=== PATIENT | female | born 1965 | race Caucasian/White ===

== ENCOUNTER → 2020-05-22 | Outpatient (CLI) | payer OTHER | LOC: RAD 10:40 | PROVIDERS: ATTEND Internal Medicine Gastroenterology | DX: K59.09 Other constipation (principal) | CPT/HCPCS: 74018 ==

== ENCOUNTER 2020-05-26 11:48 | Inpatient (IN) | payer OTHER ==
[~2020-05-26] VITALS: Ht 167.6 cm; Wt 54.0 kg
[2020-05-26] MEDS ORDERED: SODIUM CHLORIDE 0.9% 1000ML 1,000 ML IV STA (11:59)
[2020-05-26] MEDS ORDERED: PROMETHAZINE 25MG/ NS 50ML (IV) IV ONE (12:00)
[2020-05-26] MEDS ORDERED: FAMOTIDINE 20 MG/2 ML VIAL IV ONE ×2 (12:00→12:54)
[2020-05-26] MEDS ORDERED: SODIUM CHLORIDE 0.9% 1000ML 1,000 ML IV SCH (12:30)
[2020-05-26] MEDS ORDERED: PROMETHAZINE HCL (IM) 25 MG/ML VIAL IM ONE (12:53)
[2020-05-26] MEDS ORDERED: ONDANSETRON HCL INJ 2MG/ML 2ML 2 MG/ML VIAL IV PRN (14:45)
[2020-05-26] MEDS ORDERED: MORPHINE SULFATE INJ 4 MG/ML INJ 1ML IV PRN (14:45)
[2020-05-26] MEDS ORDERED: DIPHENHYDRAMINE HCL 25 MG CAP PO PRN (14:45)
[2020-05-26] MEDS ORDERED: DIATRIZOATE MEGL/DIATRIZOA SOD 30 ML BTL PO ONE (15:06)
[2020-05-26 15:15] VITALS: BP 149/93
[2020-05-26 15:45] VITALS: BP 149/93
[2020-05-26] MEDS: SODIUM CHLORIDE 0.9% 1000ML 1,000 ML IV SCH (16:00)
[2020-05-26] MEDS: DEXTROSE 5%/LACTATED RINGERS 1,000 ML IV SCH (16:07)
[2020-05-26] MEDS: FAMOTIDINE 20 MG TAB PO SCH (16:30)
[2020-05-26] MEDS ORDERED: BISACODYL 5 MG TAB EC PO ONE ×4 (17:45→19:30)
[2020-05-26 20:21] VITALS: BP 143/95
[2020-05-26] MEDS: AMITRIPTYLINE HCL 25 MG TAB PO SCH (21:00)
[2020-05-26] MEDS ORDERED: ZOLPIDEM TARTRATE 5 MG TAB PO PRN (21:00)
[2020-05-26] MEDS ORDERED: METHYLNALTREXONE BROMIDE 12 MG/0.6 ML VIAL SQ SCH (21:15)
[2020-05-26] MEDS ORDERED: AMITRIPTYLINE100 MG PO (21:32)
[2020-05-26] MEDS ORDERED: VENLAFAXINE HCL75 MG PO (21:34)
[2020-05-26] MEDS ORDERED: MS CONTIN15 MG PO (21:34)
[2020-05-26] MEDS ORDERED: VICODIN HP 10-1 EAC1 PO (21:34)
[2020-05-26 22:36] VITALS: BP 143/95
[2020-05-26 23:56] VITALS: BP 154/93
[2020-05-27] VITALS (7 sets, daily range): BP systolic 107–152; BP diastolic 72–100
[2020-05-27] MEDS: DEXTROSE 5%/LACTATED RINGERS 1,000 ML IV SCH (02:43)
[2020-05-27 06:22] LABS: BASOPHILS # (AUTO) 0.1 (0.0-0.1); BASOPHILS % 0.9 % (0.0-1.0); EOSINOPHILS # (AUTO) 0.3 (0.0-0.4); EOSINOPHILS % 2.6 % (0.0-6.0); HEMATOCRIT 31.4 % (34.2-44.1); HEMOGLOBIN 10.3 g/dL (12.0-16.0); LYMPHOCYTES # (AUTO) 1.8 (1.0-3.2); LYMPHOCYTES % 16.3 % (18.0-39.1); MEAN CORPUSCULAR HEMOGLOBIN 31.9 pg (28-32); MEAN CORPUSCULAR HGB CONC 32.8 g/dL (31-35); MEAN CORPUSCULAR VOLUME 97.2 fL (81-99); MONOCYTES # (AUTO) 0.9 (0.2-0.8); MONOCYTES % 8.2 % (4.4-11.3); NEUTROPHILS # (AUTO) 7.9 (2.1-6.9); NEUTROPHILS % 71.5 % (38.7-80.0); PLATELET COUNT 505 x10e3/uL (140-360); RED BLOOD COUNT 3.23 x10e6/uL (3.6-5.1); RED CELL DISTRIBUTION WIDTH 13.9 % (11.7-14.4)
[2020-05-27 07:11] LABS: THYROID STIMULATING HORMONE 1.846 uIU/mL (0.350-4.940)
[2020-05-27 07:47] LABS: ANION GAP 12.9 mmol/L (8-16); BLOOD UREA NITROGEN 7 mg/dL (7-26); BUN/CREATININE RATIO 9 (6-25); CALCIUM 8.6 mg/dL (8.4-10.2); CARBON DIOXIDE 26 mmol/L (22-29); CHLORIDE 105 mmol/L (98-107); CHOL/HDL RATIO 5.9 (3.0-3.6); CHOLESTEROL 212 MD/DL (0-199); EST GLOMERULAR FILTRATION RATE > 60 ML/MIN (60-); GLUCOSE 97 mg/dL (74-118); HDL CHOLESTEROL 36 MG/DL (40-60); LDL CHOLESTEROL 154 MG/DL (60-130); MAGNESIUM 1.8 MG/DL (1.3-2.1); PHOSPHORUS 3.5 MG/DL (2.3-4.7); SODIUM 141 mmol/L (136-145); TRIGLYCERIDES 111 MG/DL (0-149)
[2020-05-27 07:50] LABS: POTASSIUM 2.9 mmol/L (3.5-5.1)
[2020-05-27] MEDS: FAMOTIDINE 20 MG TAB PO SCH ×2 (08:21→17:29)
[2020-05-27] MEDS: METOCLOPRAMIDE HCL 10 MG/2ML VIAL IV SCH ×3 (08:21→20:14)
[2020-05-27] MEDS ORDERED: POTASSIUM CHLORIDE 10MEQ EA PO ONE ×2 (08:30→17:00)
[2020-05-27] MEDS: SODIUM CHLORIDE 0.9% 1000ML 1,000 ML IV SCH ×4 (08:34→20:07)
[2020-05-27] MEDS: VENLAFAXINE HCL 75 MG TAB PO SCH ×2 (10:55→17:29)
[2020-05-27 12:11] LABS: CLARITY,URINE CLOUDY (CLEAR); COLOR,URINE YELLOW (YELLOW); KETONES,URINE NEGATIVE (NEGATIVE); LEUKOCYTE ESTERASE ,URINE MODERATE (NEGATIVE); NITRITE,URINE NEGATIVE (NEGATIVE); PROTEIN,URINE DIPSTICK TRACE (NEGATIVE); URINE UROBILINOGEN 0.2 mg/dL (0.2 - 1)
[2020-05-27 12:22] LABS: WBC,URINE (MAN) 21-50 /HPF (0-5)
[2020-05-27 12:23] LABS: BACTERIA,URINE MANY /HPF; EPITHELIAL CELLS,URINE FEW /LPF
[2020-05-27] MEDS ORDERED: CEFTRIAXONE SOD 1 GM/50 ML BAG IV SCH (15:45)
[2020-05-27] MEDS ORDERED: CEFTRIAXONE SOD 1 GM in SODIUM CHLORIDE 0.9% 50ML 50 ML IV SCH (16:00)
[2020-05-27] MEDS: ACETAMINOPHEN/CODEINE 300MG - 30MG TAB PO PRN (18:19)
[2020-05-27] MEDS: AMITRIPTYLINE HCL 25 MG TAB PO SCH (20:15)
[2020-05-28 00:30] VITALS: BP 132/88
[2020-05-28] MEDS: ACETAMINOPHEN/CODEINE 300MG - 30MG TAB PO PRN ×2 (03:46→08:18)
[2020-05-28 05:57] VITALS: BP 124/88
[2020-05-28 06:12] LABS: BASOPHILS # (AUTO) 0.1 (0.0-0.1); EOSINOPHILS # (AUTO) 0.4 (0.0-0.4); EOSINOPHILS % 4.8 % (0.0-6.0); HEMATOCRIT 31.2 % (34.2-44.1); HEMOGLOBIN 10.1 g/dL (12.0-16.0); LYMPHOCYTES # (AUTO) 2.3 (1.0-3.2); LYMPHOCYTES % 27.9 % (18.0-39.1); MEAN CORPUSCULAR HEMOGLOBIN 31.4 pg (28-32); MEAN CORPUSCULAR HGB CONC 32.4 g/dL (31-35); MEAN CORPUSCULAR VOLUME 96.9 fL (81-99); MONOCYTES # (AUTO) 0.9 (0.2-0.8); MONOCYTES % 10.9 % (4.4-11.3); NEUTROPHILS # (AUTO) 4.5 (2.1-6.9); NEUTROPHILS % 54.9 % (38.7-80.0); PLATELET COUNT 498 x10e3/uL (140-360); RED BLOOD COUNT 3.22 x10e6/uL (3.6-5.1); RED CELL DISTRIBUTION WIDTH 14.3 % (11.7-14.4)
[2020-05-28 06:36] LABS: BLOOD UREA NITROGEN 6 mg/dL (7-26); BUN/CREATININE RATIO 8 (6-25); CALCIUM 8.6 mg/dL (8.4-10.2); CARBON DIOXIDE 26 mmol/L (22-29); CHLORIDE 108 mmol/L (98-107); CREATININE, SERUM 0.78 mg/dL (0.57-1.11); EST GLOMERULAR FILTRATION RATE > 60 ML/MIN (60-); GLUCOSE 84 mg/dL (74-118); SODIUM 141 mmol/L (136-145)
[2020-05-28 06:58] LABS: FERRITIN 65.49 ng/mL (4.63-204.00)
[2020-05-28] MEDS: SODIUM CHLORIDE 0.9% 1000ML 1,000 ML IV SCH (08:00)
[2020-05-28] MEDS: FAMOTIDINE 20 MG TAB PO SCH (08:11)
[2020-05-28] MEDS: METOCLOPRAMIDE HCL 10 MG/2ML VIAL IV SCH (08:11)
[2020-05-28] MEDS: VENLAFAXINE HCL 75 MG TAB PO SCH (08:11)
[2020-05-28 08:30] VITALS: BP 133/71
[2020-05-28 09:38] VITALS: BP 133/71
[2020-05-28 12:15] VITALS: BP 123/70
[2020-05-28] MEDS ORDERED: METHYLNALTREXONE BROMIDE 12 MG/0.6 ML VIAL SQ SCH (18:30)
== END 2020-05-28 15:01 | disposition home or self-care (01) | DRG 392 ==
LOC: FSED 12:30 → ERHOLD 12:33 → MED/SURG3 14:45 → OBSVTOIN 05-27 22:46
PROVIDERS: ADMIT Internal Medicine; ATTEND Internal Medicine
DX: K59.00 Constipation, unspecified (principal); N39.0 Urinary tract infection, site not specified; D47.3 Essential (hemorrhagic) thrombocythemia; D72.829 Elevated white blood cell count, unspecified; E87.6 Hypokalemia; R10.9 Unspecified abdominal pain; F41.9 Anxiety disorder, unspecified; F32.9 Major depressive disorder, single episode, unspecified; F17.210 Nicotine dependence, cigarettes, uncomplicated; R33.8 Other retention of urine; G89.29 Other chronic pain; T40.605A Adverse effect of unspecified narcotics, initial encounter; Z20.822 Contact with and (suspected) exposure to COVID-19
CPT/HCPCS: 36415; 74176; 80048; 80053; 80061; 81001; 81003; 82607; 82728; 82746; 83036; 83540; 83735; 84100; 84443; 84466; 85025; 85045; 87086; 87186; 99284; G0378; J0696; J2212; J2550; J2765; J7030; U0002

== ENCOUNTER → 2020-06-05 | Outpatient (CLI) | payer OTHER ==
[~2020-06-05] MED LIST: AMITRIPTYLINE100 MG PO; MS CONTIN15 MG PO; VENLAFAXINE HCL75 MG PO; VICODIN HP 10-1 EAC1 PO
== END ==
LOC: MAMMO 14:08
PROVIDERS: ATTEND Specialist
DX: Z12.31 Encounter for screening mammogram for malignant neoplasm of breast (principal)
CPT/HCPCS: 77067